=== PATIENT | female | born 2005 | race Asian ===

== ENCOUNTER 2023-04-08 04:39 | Emergency (ER) | payer OTHER ==
[~2023-04-08] VITALS: Ht 147.3 cm; Wt 52.2 kg
[2023-04-08 04:41] VITALS: BP 95/55; PULSE 94; RESP 16; TEMP 97.4; O2SAT 100
[2023-04-08] MEDS ORDERED: ONDANSETRON 4 MG/2 ML VIAL IVP ONE (04:55)
[2023-04-08] MEDS ORDERED: NACL 0.9% 2,000 ML IV ONE (04:55)
[2023-04-08] MEDS ORDERED: diphenhydrAMINE 50 MG/ML VIAL IVP ONE (05:30)
[2023-04-08] MEDS ORDERED: METOCLOPRAMIDE 10 MG/2 ML INJ VIAL IVP ONE (05:30)
[2023-04-08] MEDS ORDERED: ONDA-188 PO ×2 (05:47→14:11)
[2023-04-08 06:35] VITALS: BP 99/67; PULSE 83; RESP 20; O2SAT 99
[2023-04-08] MEDS ORDERED: ACET-10509 PO (14:11)
[2023-04-08] MEDS ORDERED: BEN10 PO (14:11)
== END 2023-04-08 07:30 | disposition home or self-care (01) ==
LOC: MED 04:39
DX: R11.2 Nausea with vomiting, unspecified (principal); F10.129 Alcohol abuse with intoxication, unspecified; Y90.9 Presence of alcohol in blood, level not specified
CPT/HCPCS: 96361; 96374; 96375; 99284; J1200; J2405; J2765

== ENCOUNTER 2023-04-08 11:14 | Emergency (ER) | payer OTHER ==
[~2023-04-08] VITALS: Ht 147.3 cm; Wt 51.3 kg
[~2023-04-08 11:14] MED LIST: ONDA-188 PO
[2023-04-08 11:47] VITALS: BP 95/53; PULSE 59; RESP 18; TEMP 99.1; O2SAT 100
[2023-04-08] MEDS ORDERED: ONDANSETRON 4 MG ODT PO ONE (12:25)
[2023-04-08] MEDS ORDERED: KETOROLAC 30 MG/ML VIAL IM ONE (12:25)
[2023-04-08] MEDS ORDERED: DICYCLOMINE 20 MG/2 ML VIAL IM ONE (12:25)
[2023-04-08 13:28] VITALS: O2SAT 100
[2023-04-08] MEDS ORDERED: BEN10 PO (14:11)
[2023-04-08] MEDS ORDERED: ACET-10509 PO (14:11)
[2023-04-08] MEDS ORDERED: ONDA-188 PO (14:11)
== END 2023-04-08 14:15 | disposition home or self-care (01) ==
LOC: MED 11:14
DX: R11.2 Nausea with vomiting, unspecified (principal); F10.129 Alcohol abuse with intoxication, unspecified; Y90.9 Presence of alcohol in blood, level not specified
CPT/HCPCS: 96372; 99284; J0500; J1885; Q0162